=== PATIENT | male | born 1980 | race Two or more races ===

== ENCOUNTER 2016-08-13 23:21 | Emergency (ER) | payer SELFPAY ==
[~2016-08-13] VITALS: Ht 165.1 cm; Wt 77.1 kg
[2016-08-13 23:33] VITALS: BP 136/95
[2016-08-14 00:05] LABS: OBC FLU VALID
[2016-08-14] MEDS ORDERED: ACET325T9 PO (00:15)
[2016-08-14] MEDS ORDERED: IBUP-1060 PO (00:15)
--- NOTE | 2016-08-14 00:15 | PHYS DOC ---
Past Medical History Past Medical History: Other Additional Past Medical Histor: phorisis Past Surgical History: No Surgical History Alcohol Use: Occasionally Drug Use: None Adult General Chief Complaint Chief Complaint: FLU SYMPTOM HPI HPI Patient is a 36 year old male who presents with nasal congestion, body aches, chills sore throat fevers diarrhea and a cough intermittently for 6 days. Review of Systems Review of Systems Constitutional: Body ache chills and fever Eyes: Denies change in visual acuity, redness, or eye pain [] HENT: Sore throat and nasal congestion Respiratory: Cough Cardiovascular: No additional information not addressed in HPI [] GI: Denies abdominal pain, nausea, vomiting, bloody stools or diarrhea [] : Denies dysuria or hematuria [] Musculoskeletal: Denies back pain or joint pain [] Integument: Denies rash or skin lesions [] Neurologic: Denies headache, focal weakness or sensory changes [] Endocrine: Denies polyuria or polydipsia [] Allergies Allergies Allergies Coded Allergies Type Severity Reaction Last Updated Verified No Known Drug Allergies 08/13/16 No Physical Exam Physical Exam Constitutional: Well developed, well nourished, no acute distress, non-toxic appearance. [] HENT: Normocephalic, atraumatic, bilateral external ears normal, oropharynx moist, no oral exudates, nose normal. [] Eyes: PERRLA, EOMI, conjunctiva normal, no discharge. [] Neck: Normal range of motion, no tenderness, supple, no stridor. [] Cardiovascular:Heart rate regular rhythm, no murmur [] Lungs & Thorax: Bilateral breath sounds clear to auscultation [] Abdomen: Bowel sounds normal, soft, no tenderness, no masses, no pulsatile masses. [] Skin: Warm, dry, no erythema, no rash. [] Back: No tenderness, no CVA tenderness. [] Extremities: No tenderness, no cyanosis, no clubbing, ROM intact, no edema. [] Neurologic: Alert and oriented X 3, normal motor function, normal sensory function, no focal deficits noted. [] Psychologic: Affect normal, judgement normal, mood normal. [] Current Patient Data Vital Signs Vital Signs Date Time Temp Pulse Resp B/P Pulse Ox O2 Delivery O2 Flow Rate FiO2 08/13/16 23:33 99.3 110 18 95 Room Air 99.3 Lab Values Laboratory Tests Test 2/22/17 23:40 Influenza Type A Antigen Negative (NEGATIVE) Influenza Type B Antigen Positive (NEGATIVE) EKG EKG [] Radiology/Procedures Radiology/Procedures [] Course & Med Decision Making Course & Med Decision Making Pertinent Labs and Imaging studies reviewed. (See chart for details) Patient is in the ED with symptoms consistent with an upper respiratory infection including subjective fevers but he asked chills sore throat diarrhea. He tested positive for influenza B. Symptoms have been going on for 6 days. Discharged with instructions to push fluids maintain good hand hygiene. Recommended Tylenol every 4 hours and Motrin every 6 hours. Follow-up with primary care doctor in a week. He appears well. Provided return precautions and discharged in stable condition. Dragon Disclaimer Dragon Disclaimer This electronic medical record was generated, in whole or in part, using a voice recognition dictation system. Departure Departure Impression: Primary Impression: Influenza B Additional Impressions: Upper respiratory infection Fever Cough Diarrhea Disposition: HOME, SELF-CARE Condition: STABLE Referrals: NO PCP (PCP) Follow-up with your own doctor in one week Patient Instructions: Upper Respiratory Infection, Adult Additional Instructions: You tested positive for influenza. Your symptoms are consistent with a viral infection. Take Tylenol every 4 hours and Motrin every 6 hours. Follow-up with your doctor in one week. Push fluids. Maintain good hand hygiene. Return to the ED if symptoms worsen. Scripts Ibuprofen 800 Mg [id number] Mg PO PRN Q6HRS PRN INFLAMMATION #30 TAB Prov:ELAINE SANTIZO PRODUCT ENGINEERING MANAGER 08/14/16 Acetaminophen (Tylenol)325 Mg Tablet1-2 Tab PO QID #60 TAB Ref 2 Prov:ELAINE SANTIZO PRODUCT ENGINEERING MANAGER 08/14/16 Problem Qualifiers Additional Impressions: Upper respiratory infection URI type: unspecified URI Qualified Code: J06.9 - Acute upper respiratory infection, unspecified Fever Fever type: unspecified Qualified Code: R50.9 - Fever, unspecified Diarrhea Diarrhea type: unspecified type Qualified Code: R19.7 - Diarrhea, unspecified ELAIEN SANTIZO PRODUCT ENGINEERING MANAGER Aug 14, 2016 00:15
[2016-08-14 06:29] LABS: NEGATIVE OBC STREP NEG; POSITIVE OBC STREP POS
== END 2016-08-14 00:29 | disposition home or self-care (01) ==
LOC: ER 23:21
DX: J10.1 Influenza due to other identified influenza virus with other respiratory manifestations (principal); J06.9 Acute upper respiratory infection, unspecified; R50.9 Fever, unspecified; R19.7 Diarrhea, unspecified
CPT/HCPCS: 87070; 87804; 87880; 99284

== ENCOUNTER 2017-12-01 22:04 | Emergency (ER) | payer OTHER ==
[2017-12-01 22:48] LABS: ADD MAN DIFF? NO
[2017-12-01 22:50] LABS: BASO # 0.1 x10^3/uL (0.0-0.2); BASO % 1 % (0-3); EOS # 0.1 x10^3/uL (0.0-0.7); EOS % 2 % (0-3); HEMATOCRIT 44.4 % (39.0-53.0); HEMOGLOBIN 15.7 g/dL (13.0-17.5); LYMPH # 2.7 x10^3/uL (1.0-4.8); LYMPH % 47 % (24-48); MEAN CORPUSCULAR HEMOGLOBIN 32 pg (25-35); MEAN CORPUSCULAR HGB CONC 35 g/dL (31-37); MEAN CORPUSCULAR VOLUME 91 fL (79-100); MONO # 0.5 x10^3/uL (0.0-1.1); MONO % 9 % (0-9); NEUT # 2.4 x10^3uL (1.8-7.7); NEUT % 42 % (31-73); PLATELET COUNT 195 x10^3/uL (140-400); RED BLOOD COUNT 4.86 x10^6/uL (4.30-5.70); RED CELL DISTRIBUTION WIDTH 13.3 % (11.5-14.5); WHITE BLOOD COUNT 5.8 x10^3/uL (4.0-11.0)
[2017-12-01] MEDS: ORPHENADRINE CITRATE 60 MG/2 ML VIAL. IV (22:57)
[2017-12-01] MEDS: ONDANSETRON PF 4 MG/2 ML VIAL. IV (22:58)
[2017-12-01] MEDS: diphenhydrAMINE 50 MG/ML VIAL IVP (22:58)
[2017-12-01 22:59] LABS: ANION GAP 10 (6-14); BLOOD UREA NITROGEN 13 mg/dL (8-26); BUN/CREATININE RATIO 19 (6-20); CALCIUM 8.4 mg/dL (8.5-10.1); CARBON DIOXIDE 25 mmol/L (21-32); CHLORIDE 103 mmol/L (98-107); CREATININE 0.7 mg/dL (0.7-1.3); GFR 126.2; GLUCOSE 138 mg/dL (70-99); POTASSIUM 3.9 mmol/L (3.5-5.1); SODIUM 138 mmol/L (136-145)
[2017-12-01 23:05] LABS: ALBUMIN 3.6 g/dL (3.4-5.0); ALK PHOS 68 U/L (46-116); ALT (SGPT) 66 U/L (16-63); AST (SGOT) 27 U/L (15-37); TOTAL BILIRUBIN 0.4 mg/dL (0.2-1.0); TOTAL PROTEIN 7.1 g/dL (6.4-8.2)
[2017-12-01] MEDS: KETOROLAC 15 MG/ML VIAL. IV (23:55)
[2017-12-01] MEDS: hydrALAZINE 20 MG/ML VIAL. IVP (23:56)
== END 2017-12-02 01:19 | disposition home or self-care (01) ==
LOC: ER 22:04
DX: G44.209 Tension-type headache, unspecified, not intractable (principal)
CPT/HCPCS: 36415; 70450; 80053; 85025; 96374; 96375; 99285-25; J0360; J1200; J1885; J2360; J2405